=== PATIENT | male | born 1990 | race African-American/Black ===

== ENCOUNTER 2021-03-14 00:24 | Emergency (ER) | payer SELFPAY ==
[~2021-03-14] VITALS: Ht 185.4 cm; Wt 91.0 kg
[2021-03-14 00:26] VITALS: BP 132/67
[2021-03-14] MEDS ORDERED: NALO4SPR BOTHNSTRLS (00:27)
== END 2021-03-14 00:35 | disposition home or self-care (01) ==
LOC: ER 00:24
DX: T40.5X1A Poisoning by cocaine, accidental (unintentional), initial encounter (principal); Y92.9 Unspecified place or not applicable
CPT/HCPCS: 99283

== ENCOUNTER 2022-01-02 15:35 | Emergency (ER) | payer MEDICAID ==
[~2022-01-02] VITALS: Ht 182.9 cm; Wt 100.0 kg
[~2022-01-02 15:35] MED LIST: NALO4SPR BOTHNSTRLS
[2022-01-02 15:43] VITALS: BP 137/71
[2022-01-02] MEDS ORDERED: IBUPROFEN 600MG TABLET PO ONE (16:00)
== END 2022-01-02 17:01 | disposition left against medical advice (07) ==
LOC: ER 15:35
DX: M25.571 Pain in right ankle and joints of right foot (principal); F14.10 Cocaine abuse, uncomplicated; F17.200 Nicotine dependence, unspecified, uncomplicated; E11.9 Type 2 diabetes mellitus without complications; J45.909 Unspecified asthma, uncomplicated; Z13.9 Encounter for screening, unspecified
CPT/HCPCS: 99283